=== PATIENT | female | born 1985 | race Caucasian/White ===

== ENCOUNTER 2017-12-19 17:12 | Emergency (ER) | payer OTHER, SELFPAY ==
[2017-12-19 17:18] VITALS: BP 125/84; PULSE 72; RESP 15; TEMP 36.3; O2SAT 100; BMI 22.8
--- NOTE | 2017-12-19 17:23 | DI.RAD.S_ITS ---
PROCEDURE: XR CHEST 1V INDICATIONS: chest pain TECHNIQUE: One view of the chest was acquired. COMPARISON: None. FINDINGS: Surgical changes and devices: None. Lungs and pleura: No pleural effusions or pneumothorax. Lungs are clear. Mediastinum: Mediastinal contours appear normal. Heart size is normal. Bones and chest wall: No suspicious bony lesions. Overlying soft tissues appear unremarkable. IMPRESSION: No acute cardiopulmonary disease process. Dictated by: Christine Aguirre MD, PhD on 12/19/2017 at 16:46 Approved by: Christine Aguirre MD, PhD on 12/19/2017 at 16:46
--- NOTE | 2017-12-19 17:26 | ED.CHESTPAIN ---
HPI - Chest Pain <MARY ELLEN Neville - Last Filed: 12/19/17 22:28> General Chief Complaint: Chest Pain Stated Complaint: MIDDLE CHEST PAIN X1 DAY Time Seen by Provider: 12/19/17 17:26 Source: patient Mode of arrival: ambulatory Limitations: no limitations History of Present Illness HPI narrative: 32-year-old healthy female with history of tubal ligation is a nonsmoker here for complaint of having chest pain that started around 9 o'clock this morning. She denies any trauma to the chest wall. She denies any nausea vomiting. No shortness of breath. No diaphoresis, she reports she does frequently get chest pain daily. she does feel that she might have some anxiety issues that may be adding to her issues of frequent chest pain. She does not currently have a primary care provider. she denies any other concerns or complaints at this time. No fevers no chills. Related Data Allergies Allergy/AdvReac Type Severity Reaction Status Date / Time No Known Drug Allergies Allergy Verified 12/19/17 17:18 Review of Systems <MARY ELLEN Neville - Last Filed: 12/19/17 22:28> Constitutional Denies chills, Denies fatigue, Denies fever(s), Denies lethargy and Denies weakness Eyes Denies change in vision, Denies eye discharge, Denies irritation and Denies loss of vision ENT Ears, Nose, Mouth, and Throat: Denies change in voice, Denies neck pain and Denies sore throat Cardiovascular Reports chest pain, Denies dyspnea and Denies dyspnea on exertion Respiratory Denies cough, Denies dyspnea, Denies dyspnea on exertion and Denies wheezing Gastrointestinal Gastrointestinal: Denies abdominal pain, Denies change in bowel habits, Denies diarrhea, Denies nausea and Denies vomiting Genitourinary Denies hematuria, Denies flank pain, Denies urinary incontinence and Denies urinary urgency Musculoskeletal Denies neck pain Integumentary/Breasts Denies pruritus, Denies erythema, Denies rash and Denies wounds Neurologic Denies confusion, Denies loss of vision and Denies weakness Psychiatric Denies anxiety, Denies confusion, Denies depression, Denies homicidal ideation and Denies suicidal ideation Endocrine Denies fatigue and Denies flushing Hematologic/Lymphatic Denies easy bruising Allergic/Immunologic Denies wheezing Exam <MARY ELLEN Neville - Last Filed: 12/19/17 22:28> Initial Vital Signs Initial Vital Signs: Vital Signs Temperature 97.3 F L 12/19/17 17:18 Pulse Rate 72 12/19/17 17:18 Respiratory Rate 15 12/19/17 17:18 Blood Pressure 125/84 12/19/17 17:18 Pulse Oximetry 100 12/19/17 17:18 Const General: cooperative and well developed Nutritional Appearance: well nourished Orientation: alert, awake, oriented x3 and not confused [facility] Mouth: oral mucosae normal and moist mucous membranes Eyes Conjunctivae: conjunctivae normal Sclera: sclerae normal Pupils: PERRL EOM: EOM intact bilaterally Chest Chest: tenderness ( palpitation to the left sternal border) Resp Effort & Inspection: normal respiratory effort, able to speak in complete sentences, no respiratory distress and no use of accessory muscles Auscultation: clear to auscultation bilaterally, no rales, no rhonchi and no wheezes Cardio Rate: regular rate Rhythm: regular rhythm Heart Sounds: no click, no gallops, no murmurs and no rubs Pulses: normal peripheral pulses Skin General: no rashes or lesions noted, No jaundice and No petechiae Neuro General: alert, oriented x3, gait normal and no focal motor deficits Speech: speech normal <Lindsay You DO - Last Filed: 12/27/17 18:24> Initial Vital Signs Initial Vital Signs: Vital Signs Temperature 97.3 F L 12/19/17 17:18 Pulse Rate 72 12/19/17 17:18 Respiratory Rate 15 12/19/17 17:18 Blood Pressure 125/84 12/19/17 17:18 Pulse Oximetry 100 12/19/17 17:18 Scores <MARY ELLEN Neville - Last Filed: 12/19/17 22:28> HEART Score Heart Score history: Slightly Suspicious Heart Score EKG: Normal Heart Score Age: < 45 years old Heart Score risk factors: No known risk factors Heart Score troponin: < or = to normal limit Heart Score Total: 0 PERC Score Age greater than or equal to 50 years: No Heart rate greater than or equal to 100 bpm: No Room Air O2 Sat less than 95%: No Unilateral leg swelling: No Recent trauma or surgery: No Hemoptysis: No Prior PE or DVT: No Hormone Use: No Total PERC Score: 0 Course <MARY ELLEN Neville - Last Filed: 12/19/17 22:28> Orders Ordered: ED Orders 12/19/17 17:17 EKG-12 Lead Stat 12/19/17 17:23 XR chest 1V Stat 12/19/17 17:35 Complete Blood Count AUTO DIFF Stat Comprehensive Metabolic Panel Stat Lipase Stat Partial Thromboplastin Time Stat Prothrombin Time INR Stat Troponin & CK Cardiac Panel Stat Vital Signs - 8 hr 12/19/17 17:18 12/19/17 19:25 Temperature 97.3 F L Pulse Rate 72 78 Respiratory Rate 15 20 Blood Pressure 125/84 116/78 Pulse Oximetry 100 99 <Lindsay You DO - Last Filed: 12/27/17 18:24> Orders Ordered: ED Orders 12/19/17 17:17 EKG-12 Lead Stat 12/19/17 17:23 XR chest 1V Stat 12/19/17 17:35 Complete Blood Count AUTO DIFF Stat Comprehensive Metabolic Panel Stat Lipase Stat Partial Thromboplastin Time Stat Prothrombin Time INR Stat Troponin & CK Cardiac Panel Stat Vital Signs - 8 hr 12/19/17 17:18 12/19/17 19:25 Temperature 97.3 F L Pulse Rate 72 78 Respiratory Rate 15 20 Blood Pressure 125/84 116/78 Pulse Oximetry 100 99 MDM - Chest Pain <MARY ELLEN Neville - Last Filed: 12/19/17 22:28> Lab Data Result diagrams: 12/19/17 17:35 12/19/17 17:35 Lab Results 12/19/17 12/19/17 12/19/17 Range/Units 17:35 17:35 17:35 WBC 6.3 (4.5-11.0) X10^3/uL RBC 4.61 (4.0-5.2) X10^6/uL Hgb 13.6 (12.0-16.0) g/dL Hct 40.2 (36-46) % MCV 87.4 (80-100) fL MCH 29.6 (26-34) PG MCHC 33.9 (30-36) % RDW 13.1 (11.6-14.8) % Plt Count 202 (150-400) X10^3/uL Neut % (Auto) 50.9 (50-75) % Lymph % (Auto) 37.9 (25-40) % [place] % (Auto) 9.0 (3-14) % Eos % (Auto) 1.5 L (2-4) % Baso % (Auto) 0.7 (0-2) % Neut # (Auto) 3200 (3046-6879) /uL PT 12.1 (10.1-12.7) SECONDS INR 1.1 (0.9-1.3) APTT 33 (26.4-36.2) SECONDS Sodium 142 (137-145) mmol/L Potassium 3.8 (3.4-5.1) mmol/L Chloride 104 (98-107) mmol/L Carbon Dioxide 27 (22-32) mmol/L BUN 11 (7-17) mg/dL Creatinine 0.70 (0.52-1.04) mg/dL Estimated GFR > 60.0 (>60) mL/min BUN/Creatinine Ratio 15.7 (6-22) Glucose 88 (70-100) mg/dL Calcium 9.3 (8.4-10.2) mg/dL Total Bilirubin 0.4 (0.2-1.3) mg/dL AST 29 (14-36) IU/L ALT 35 (9-52) IU/L Alkaline Phosphatase 41 (38-126) U/L Total Creatine Kinase 120 (30-135) U/L CK-MB (CK-2) 0.95 (<2.37) ng/mL CK-MB (CK-2) Rel Index 0.8 L (1.5-5.0) % Troponin I < 0.012 (0.01-0.034) ng/mL Total Protein 7.7 (6.3-8.2) g/dL Albumin 4.7 (3.5-5.0) g/dL Globulin 3.0 (1.7-4.1) g/dL Albumin/Globulin Ratio 1.6 (1.0-2.8) Lipase 38 (23-300) U/L Point of Care Testing Test Results Negative Imaging Data Chest x-ray: Radiologist's impression: [address] [address] XRay Report Signed Patient: Becka Perez LMR#: [id number] : 1985Acct:[id number] Age/Sex: 32 / FDate of Service: 12/19/17 Loc: ED Accession Number: [id number] Procedure: XR chest 1V Ordering Provider: Gucci Feng D.O. PROCEDURE: XR CHEST 1V INDICATIONS: chest pain TECHNIQUE: One view of the chest was acquired. COMPARISON: None. FINDINGS: Surgical changes and devices: None. Lungs and pleura: No pleural effusions or pneumothorax. Lungs are clear. Mediastinum: Mediastinal contours appear normal. Heart size is normal. Bones and chest wall: No suspicious bony lesions. Overlying soft tissues appear unremarkable. IMPRESSION: No acute cardiopulmonary disease process. Dictated by: Christine Aguirre MD, PhD on 12/19/2017 at 16:46 Approved by: Christine Aguirre MD, PhD on 12/19/2017 at 16:46 [place] [address] XRay Report Signed Patient: Becka Perez LMR#: [id number] : 1985Acct:[id number] Age/Sex: 32 / FDate of Service: 12/19/17 Loc: ED Accession Number: [id number] Procedure: XR chest 1V Ordering Provider: Gucci Feng D.O. PROCEDURE: XR CHEST 1V INDICATIONS: chest pain TECHNIQUE: One view of the chest was acquired. COMPARISON: None. FINDINGS: Surgical changes and devices: None. Lungs and pleura: No pleural effusions or pneumothorax. Lungs are clear. Mediastinum: Mediastinal contours appear normal. Heart size is normal. Bones and chest wall: No suspicious bony lesions. Overlying soft tissues appear unremarkable. IMPRESSION: No acute cardiopulmonary disease process. Dictated by: Christine Aguirre MD, PhD on 12/19/2017 at 16:46 Approved by: Christine Aguirre MD, PhD on 12/19/2017 at 16:46 ECG Data Interpretation: EKG shows sinus Bradycardia with no ST elevation or depression. No ectopy. ventricular rate of 53. Pr interval 174. QRS duration of 95. QT of 413 MDM Narrative Medical decision making narrative: EKG was obtained and was unremarkable. Chest x-ray was obtained was negative for any acute findings. CBC and Chem panel were obtained were unremarkable. Troponin 8 hr post started chest pain was obtained and was negative. chest pain was reproducible with palpation to the anterior chest wall. Signs and symptoms presents as costochondritis. [id number] ibuprofen as needed for any discomfort. Rest area. Follow up with primary care provider next week. For any worsening symptoms return to the emergency room. <Lindsay You, - Last Filed: 12/27/17 18:24> Lab Data Lab Results 12/19/17 12/19/17 12/19/17 Range/Units 17:35 17:35 17:35 WBC 6.3 (4.5-11.0) X10^3/uL RBC 4.61 (4.0-5.2) X10^6/uL Hgb 13.6 (12.0-16.0) g/dL Hct 40.2 (36-46) % MCV 87.4 (80-100) fL MCH 29.6 (26-34) PG MCHC 33.9 (30-36) % RDW 13.1 (11.6-14.8) % Plt Count 202 (150-400) X10^3/uL Neut % (Auto) 50.9 (50-75) % Lymph % (Auto) 37.9 (25-40) % [place] % (Auto) 9.0 (3-14) % Eos % (Auto) 1.5 L (2-4) % Baso % (Auto) 0.7 (0-2) % Neut # (Auto) 3200 (3088-2903) /uL PT 12.1 (10.1-12.7) SECONDS INR 1.1 (0.9-1.3) APTT 33 (26.4-36.2) SECONDS Sodium 142 (137-145) mmol/L Potassium 3.8 (3.4-5.1) mmol/L Chloride 104 (98-107) mmol/L Carbon Dioxide 27 (22-32) mmol/L BUN 11 (7-17) mg/dL Creatinine 0.70 (0.52-1.04) mg/dL Estimated GFR > 60.0 (>60) mL/min BUN/Creatinine Ratio 15.7 (6-22) Glucose 88 (70-100) mg/dL Calcium 9.3 (8.4-10.2) mg/dL Total Bilirubin 0.4 (0.2-1.3) mg/dL AST 29 (14-36) IU/L ALT 35 (9-52) IU/L Alkaline Phosphatase 41 (38-126) U/L Total Creatine Kinase 120 (30-135) U/L CK-MB (CK-2) 0.95 (<2.37) ng/mL CK-MB (CK-2) Rel Index 0.8 L (1.5-5.0) % Troponin I < 0.012 (0.01-0.034) ng/mL Total Protein 7.7 (6.3-8.2) g/dL Albumin 4.7 (3.5-5.0) g/dL Globulin 3.0 (1.7-4.1) g/dL Albumin/Globulin Ratio 1.6 (1.0-2.8) Lipase 38 (23-300) U/L Point of Care Testing Test Results Negative ECG Data Attestation: I personally reviewed and interpreted this ECG as follows: Prior ECG tracings: not available for review Interpretation: Normal sinus rhythm rate [address] changes here interval 174, QRS 95, QTC 389 Discharge Plan Departure Patient Disposition: Home Clinical Impression: Acute costochondritis Discharge Date/Time: 12/19/17 19:26 Interventions: ED Discharge Assessment Last Done: 12/19/17 19:25 Instructions: DI for Costochondritis Activity Restrictions/Additional Instructions: laboratory results chest x-ray and EKG today were unremarkable. Signs and symptoms presents as chest wall discomfort. use [id number] ibuprofen as needed for any discomfort. Rest area. Follow up with primary care provider next week for re-evaluation. For any worsening symptoms return to the emergency room. Referrals: Millicent Del Toro MD [Primary Care Provider] - <Lindsay You DO - Last Filed: 12/27/17 18:24> Cosign ED Attending Susan Attestation: I was immediately available in the department for consultation. Documentation has been reviewed. I agree with assessment and plan.
[2017-12-19 17:41] LABS: Add Manual Diff / Slide Review NO; Basophils Percent Auto 0.7 % (0-2); Eosinophils Percent Auto 1.5 % (2-4); Hematocrit 40.2 % (36-46); Hemoglobin 13.6 g/dL (12.0-16.0); Lymphocytes Percent Auto 37.9 % (25-40); Mean Corpuscular HGB Conc 33.9 % (30-36); Mean Corpuscular Hemoglobin 29.6 PG (26-34); Mean Corpuscular Volume 87.4 fL (80-100); Neutrophils Absolute Auto 3200 /uL (3000-5900); Neutrophils Percent Auto 50.9 % (50-75); Platelet Count 202 X10^3/uL (150-400); Red Blood Cell Count 4.61 X10^6/uL (4.0-5.2); Red Cell Distribution Width 13.1 % (11.6-14.8); White Blood Cell Count 6.3 X10^3/uL (4.5-11.0)
[2017-12-19 17:50] LABS: INR 1.1 (0.9-1.3); Prothrombin Time 12.1 SECONDS (10.1-12.7)
[2017-12-19 17:53] LABS: PTT Partial Thromboplastin Tim 33 SECONDS (26.4-36.2)
[2017-12-19 17:54] LABS: Alanine Aminotransferase 35 IU/L (9-52); Albumin 4.7 g/dL (3.5-5.0); Albumin Globulin Ratio 1.6 (1.0-2.8); Alkaline Phosphatase 41 U/L (38-126); Aspartate Aminotransferase 29 IU/L (14-36); BUN Creatinine Ratio 15.7 (6-22); Bilirubin Total 0.4 mg/dL (0.2-1.3); Blood Urea Nitrogen 11 mg/dL (7-17); Calcium 9.3 mg/dL (8.4-10.2); Carbon Dioxide 27 mmol/L (22-32); Chloride 104 mmol/L (98-107); Creatine Kinase 120 U/L (30-135); Estimated Glomerular Filt Rate > 60.0 mL/min (>60); Glucose 88 mg/dL (70-100); HEMOLYSIS < 15 (0-50); Lipase 38 U/L (23-300); Potassium 3.8 mmol/L (3.4-5.1); Sodium 142 mmol/L (137-145); Total Protein 7.7 g/dL (6.3-8.2)
[2017-12-19 18:07] LABS: Troponin I < 0.012 ng/mL (0.01-0.034)
[2017-12-19 18:09] LABS: CKMB % Relative Index 0.8 % (1.5-5.0); Creatine Kinase MB 0.95 ng/mL (<2.37)
[2017-12-19 19:25] VITALS: BP 116/78; PULSE 78; RESP 20; O2SAT 99
== END 2017-12-19 19:26 | disposition home or self-care (01) ==
PROVIDERS: Emergency Medicine; Emergency Provider Nurse Practitioner Family; Family Provider Obstetrics & Gynecology; PCP Obstetrics & Gynecology
DX: M94.0 Chondrocostal junction syndrome [Tietze] (principal)
CPT/HCPCS: 36415; 71045; 80053; 81025; 82550; 82553; 83690; 84484; 85025; 85610; 85730; 93005; 99282; 99285

== ENCOUNTER 2018-07-05 22:08 | Emergency (ER) | payer OTHER, SELFPAY ==
[2018-07-05 22:19] VITALS: BP 118/85; PULSE 69; RESP 14; TEMP 36.7; O2SAT 98; BMI 22.8
--- NOTE | 2018-07-05 22:31 | ED.EAR ---
HPI - Ear Problem General Chief complaint: Ear Stated complaint: ear pain x3 days Time Seen by Provider: 07/05/18 22:30 Source: patient Mode of arrival: ambulatory Limitations: no limitations History of Present Illness HPI Narrative: Patient is a 33-year-old female here for evaluation of left ear pain. She states it has been going on for the past couple days. Has had some drainage from the ear. No change in her hearing. 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 She states that the tympanic membrane in that ear has been ?reconstructed ?she has been doing home homeopathic remedies with olive oil and Lavender. Related Data Previous Rx's Medication Instructions Recorded ciprofloxacin-dexamethasone 4 drop EAR-LEFT BID 7 Days #7.5 ml 07/05/18 [Ciprodex] Allergies Allergy/AdvReac Type Severity Reaction Status Date / Time No Known Drug Allergies Allergy Verified 07/05/18 22:19 Review of Systems Constitutional Denies fever(s) and Reports headache(s) ENT Ears, Nose, Mouth, and Throat: Denies vertigo, Denies dizziness, Denies facial pain, Reports headache(s), Denies hearing loss, Denies disequilibrium, Denies sore throat, Denies throat swelling and Denies tongue swelling Comments: Left ear pain Cardiovascular Denies chest pain and Denies dyspnea Respiratory Denies dyspnea Integumentary/Breasts Denies rash Neurologic Denies vertigo, Denies dizziness, Reports headache(s) and Denies disequilibrium Hematologic/Lymphatic Denies easy bleeding and Denies easy bruising Allergic/Immunologic Denies throat swelling and Denies tongue swelling [facility] Medical History Ruptured tympanic membrane (Resolved) Surgical History (Updated 01/05/18 @ 22:03 by Gardenia Esteban) Status post loop electrosurgical excision procedure (LEEP) of cervix (~2009) Status post myringotomy with insertion of tube Status post tubal ligation (12/26/13) Social History Smoking Status: Never smoker Social History Smoking Status: Never smoker Exam Initial Vital Signs Initial Vital Signs: Vital Signs Temperature 98.1 F 07/05/18 22:19 Pulse Rate 69 07/05/18 22:19 Respiratory Rate 14 07/05/18 22:19 Blood Pressure 118/85 07/05/18 22:19 Pulse Oximetry 98 07/05/18 22:19 Const General: cooperative, healthy appearing, comfortable, well developed, well groomed and No acute distress Orientation: alert and oriented x3 HENMT Head: normal to inspection and normocephalic Ears: TM's normal bilaterally and EAC abnormal cerumen impaction on the right, erythema on the left, edema not on the left and EAC tenderness on the left; no otic discharge Nose: external nose normal Face and sinus: normal facial exam Mouth: oral mucosae normal Teeth and gingiva: dentition normal Neck Lymphatic: No lymphadenopathy Resp Effort & Inspection: normal respiratory effort Auscultation: clear to auscultation bilaterally Cardio Rate: regular rate Rhythm: regular rhythm Skin Lesions: no lesions Rashes: no rashes Neuro General: alert, awake and oriented x3 Cognition: normal cognition Speech: speech normal Extrem General: normal to inspection and capillary refill normal Course Vital Signs - 8 hr 07/05/18 22:19 Temperature 98.1 F Pulse Rate 69 Respiratory Rate 14 Blood Pressure 118/85 Pulse Oximetry 98 Medical Decision Making MDM Narrative Medical decision making narrative: The right tympanic membrane is completely obscured by cerumen. It is too far posterior for me to remove here in the emergency department. The left tympanic membrane despite it being reconstructed as a child looks normal. Is not erythematous. It is not bulging. Patient is exquisitely tender with the left EAC. She is also having tenderness with movement of the auricle. There is minimal swelling. Will place on Ciprodex. Patient is given a prescription for this. I did inform her that the homeopathic remedies she is using at home could be causing irritation. She is given return precautions and follow-up instructions. She expressed understanding and agreement plan Discharge Plan Departure Patient Disposition: Home Clinical Impression: Otitis externa Qualifiers: Otitis externa type: unspecified type Chronicity: acute Laterality: left Qualified Code(s): H60.502 - Unspecified acute noninfective otitis externa, left ear Discharge Date/Time: 07/05/18 22:38 Interventions: ED Discharge Assessment Last Done: 07/05/18 22:36 Instructions: How to Instill Ear Drops, DI for Otitis Externa Activity Restrictions/Additional Instructions: Take the antibiotic drops as directed. You can take Tylenol or ibuprofen as needed for any discomfort. Keep your scheduled appointment that she had with your primary doctor in the next couple days. Return to the emergency department for any new or worsening symptoms Prescriptions: New Ciprodex 0.3-0.1 % drops,suspension 4 drop EAR-LEFT BID 7 Days Qty: 7.5 RF: 0 Referrals: Millicent Del Toro MD [Primary Care Provider] -
== END 2018-07-05 22:38 | disposition home or self-care (01) ==
PROVIDERS: Emergency Provider Emergency Medicine; Family Provider Obstetrics & Gynecology; PCP Obstetrics & Gynecology
DX: H60.502 Unspecified acute noninfective otitis externa, left ear (principal)
CPT/HCPCS: 99282; 99283

== ENCOUNTER 2019-01-30 11:59 | Emergency (ER) | payer OTHER, SELFPAY ==
[2019-01-30 12:34] VITALS: BP 103/76; PULSE 67; RESP 18; O2SAT 99; BMI 24.3
[2019-01-30 13:11] VITALS: TEMP 36.8
--- NOTE | 2019-01-30 14:26 | ED_ITS ---
HPI - Female Genitourinary General Chief complaint: Urogenital-Female Stated complaint: heavy menses x1 day Time Seen by Provider: 01/30/19 14:10 Source: patient Mode of arrival: Ambulatory Limitations: no limitations History of Present Illness HPI Narrative: Patient is a 33-year-old female who presents with heavy menstrual pain. She states her last menstrual period was December 13. She had some very light spotting in December she actually took a test which was negative. Today she had 2 large episodes of blood along with some cramping. No dizziness lightheadedness or shortness of breath. She called OBGYN who recommended she come to the ED for further evaluation. Related Data Allergies Allergy/AdvReac Type Severity Reaction Status Date / Time No Known Drug Allergies Allergy Verified 07/05/18 22:19 Review of Systems Review of Systems Narrative: GENERAL: Denies chills,fever HEENT: Denies throat pain RESPIRATORY: Denies dyspnea, cough, wheezing CARDIOVASCULAR: Denies chest pain, palpitations [employer]: See HPI GASTROINTESTINAL: Denies nausea, vomiting MUSCULOSKELETAL: Denies extremity pain, injury SKIN: No rash, no laceration, no pruritus NEUROLOGIC: Denies weakness, dizziness, headache, numbness 8 point review of systems is negative except for those stated above and HPI Patient History Medical History Ruptured tympanic membrane (Resolved) Surgical History Status post loop electrosurgical excision procedure (LEEP) of cervix (~2009) Status post myringotomy with insertion of tube Status post tubal ligation (12/26/13) alcohol intake frequency: holidays/special occasions only Substance Use Type: does not use Exam Initial Vital Signs Initial Vital Signs: Vital Signs Pulse Rate 67 01/30/19 12:34 Respiratory Rate 18 01/30/19 12:34 Blood Pressure 103/76 01/30/19 12:34 Pulse Oximetry 99 01/30/19 12:34 GENERAL: Well-appearing, well-nourished and in no acute distress. HEENT: Head atraumatic,EOMI, pupils reactive, face symmetric, moist mucous membranes CARDIOVASCULAR: Regular rate and rhythm without murmurs, rubs or gallops. RESPIRATORY: Breath sounds equal bilaterally, no wheezes rales or rhonchi. ABDOMEN: Soft, nontender. Normoactive bowel sounds all 4 quadrants. No guarding or rebound. EXTREMITIES: Normal range of motion, no clubbing or edema. Neurovascularly intact NEUROLOGICAL: Alert and oriented x4.Normal gait and speech. SKIN: Warm, dry, no laceration, no petechiae, no rashes or lesions. Course Orders Ordered: ED Orders 01/30/19 15:21 Urine Microscopic Stat Vital Signs Vital signs: Vital Signs - 8 hr 01/30/19 12:34 01/30/19 13:11 01/30/19 15:26 Temperature 98.3 F Pulse Rate 67 78 Respiratory Rate 18 16 Blood Pressure 103/76 Blood Pressure [Right Arm] 107/73 Pulse Oximetry 99 100 MDM - Female Genitourinary Lab Data Attestation: I reviewed the patient's lab results. Labs: Lab Results 01/30/19 Range/Units 15:21 Urine RBC 10-30/hpf H (0-5/HPF) Urine WBC None seen (0-5/HPF) Urine Bacteria None seen (None) Urine Mucus 1+ H (Negative) Ur Culture Indicated? Cult not indicated Point of Care Testing Test Results Negative Urine Dip Bedside Urine Glucose Negative Bedside Urine Bilirubin - Negative Bedside Urine Ketone - Negative Urine Specific Picher 1.015 Bedside Urine Occult Blood +++ Bedside Urine pH 6.5 Bedside Urine Protein - Negative Bedside Urine Urobilinogen - Negative Bedside Urine Nitrite - Negative Bedside Urine Leukocytes - Negative Esterase [facility] Narrative Medical decision making narrative: At this time likely dysfunctional uterine bleeding negative test. The bleeding has slowed down significantly while in the emergency department. Abdomen is soft minimally tender At this time she does not need or want anything for pain. She seems comfortable. Discharge Plan Departure Patient Disposition: Home Clinical Impression: Dysfunctional uterine bleeding Discharge Date/Time: 01/30/19 15:36 Instructions: DI for Vaginal Bleeding Activity Restrictions/Additional Instructions: *You have been diagnosed with vaginal bleeding *What to do: This is likely your body really regulating itself. Expect to have some heavy bleeding today and tomorrow but should start tapering off. *Continue to take medications as directed Ibuprofen 800 mg every 8 hours if needed for [id number]-[id number]-qdwhxsby pain *Follow up with your primary care provider in 2-3 days *Return to ER if you should have heavy vaginal bleeding more than 1 super pad or tampon an hour, increased abdominal pain, dizziness, lightheadedness, passing out or any new, worsening or concerning symptoms Referrals: Millicent Del Toro MD [Primary Care Provider] -
[2019-01-30 15:24] LABS: Bacteria Urine None Seen; WBC Urine None Seen (0-5/HPF)
[2019-01-30 15:26] VITALS: BP 107/73; PULSE 78; RESP 16; O2SAT 100
[2019-01-30 15:38] LABS: Culture Indicated Urine Cult Not Indicated; Mucus Urine 1+ (Negative); RBC Urine 10-30/HPF (0-5/HPF)
== END 2019-01-30 15:36 | disposition home or self-care (01) ==
PROVIDERS: Emergency Provider Emergency Medicine; Family Provider Obstetrics & Gynecology; PCP Obstetrics & Gynecology
DX: N93.8 Other specified abnormal uterine and vaginal bleeding (principal)
CPT/HCPCS: 81003; 81015; 81025; 99282

== ENCOUNTER 2019-05-24 05:14 | Emergency (ER) | payer OTHER, SELFPAY ==
--- NOTE | 2019-05-24 05:16 | ED.EAR ---
HPI - Ear Problem General Chief complaint: Ear Stated complaint: ruptured left ear drum Time Seen by Provider: 05/24/19 05:16 Source: patient Mode of arrival: Ambulatory Limitations: no limitations History of Present Illness HPI Narrative: 34-year-old female nonsmoker with noncontributory medical history presents with a chief complaint of severe right-sided ear pain. Two days ago she was irrigating her right ear with an [id number] solution when she felt a sudden pop and severe pain with drainage of clear fluid and blood. Since then she has had difficulty hearing from the ear and has developed significant pain and swelling of her ear canal with the drainage of yellowish fluid. She has some pain of the surrounding skin anterior to her ear and around her cheek. She has no pain over her mastoid process. She has had no systemic findings such as fever, chills nor nausea or vomiting. MD Complaint: ear pain, ear discharge and decreased hearing Location: right ear Duration: constant Severity: severe Exacerbating factors: nothing Context: trauma Discharge from ear: yes - bloody and yes - purulent Associated symptoms ear: decreased hearing, headache, external ear tenderness and ear swelling Treatment prior to arrival: attempt at ear wax removal Related Data Previous Rx's Medication Instructions Recorded ciprofloxacin HCl [Cipro] 500 mg PO BID #20 tab 05/24/19 Allergies Allergy/AdvReac Type Severity Reaction Status Date / Time No Known Drug Allergies Allergy Verified 05/24/19 05:41 Review of Systems Constitutional Constitutional: Denies chills, Denies fatigue, Denies fever(s), Denies frequent falls, Denies lethargy and Denies weakness Eyes Eyes: Denies change in vision, Denies eye discharge, Denies irritation and Denies loss of vision ENT Ears, Nose, Mouth, and Throat: Denies change in voice, Denies dizziness, Reports ear discharge, Reports otalgia, Denies neck pain, Denies sore throat and Denies throat swelling Cardiovascular Cardiovascular: Denies chest pain, Denies irregular heart rhythm, Denies lightheadedness, Denies palpitations, Denies dyspnea, Denies dyspnea on exertion and Denies orthopnea Respiratory Respiratory: Denies cough, Denies dyspnea, Denies dyspnea on exertion and Denies wheezing Gastrointestinal Gastrointestinal: Denies abdominal pain, Denies change in bowel habits, Denies diarrhea, Denies nausea and Denies vomiting Genitourinary Genitourinary: Denies hematuria, Denies flank pain, Denies urinary incontinence and Denies urinary urgency Musculoskeletal Musculoskeletal: Denies back pain, Denies muscle weakness, Denies neck pain, Denies numbness and Denies tingling Integumentary/Breasts Skin/Breast: Denies pruritus, Denies erythema, Denies rash and Denies wounds Neurologic Neurologic: Denies behavioral changes, Denies confusion, Denies dizziness, Denies frequent falls, Denies loss of vision, Denies numbness, Denies tingling and Denies weakness Psychiatric Psychiatric: Denies anxiety, Denies behavioral changes, Denies confusion, Denies depression, Denies homicidal ideation and Denies suicidal ideation Endocrine Endocrine: Denies fatigue, Denies flushing and Denies palpitations Hematologic/Lymphatic Hematologic/Lymphatic: Denies easy bruising Allergic/Immunologic Allergic/Immunologic: Denies urticaria, Denies throat swelling and Denies wheezing Patient History Medical History Ruptured tympanic membrane (Resolved) Surgical History Status post loop electrosurgical excision procedure (LEEP) of cervix (~2009) Status post myringotomy with insertion of tube Status post tubal ligation (12/26/13) Social History Smoking Status: Never smoker Smoking Status: Never smoker alcohol intake frequency: holidays/special occasions only Substance Use Type: does not use Exam Narrative Exam Narrative: GEN: AOx3 and in obvious distress, obviously uncomfortable, holding her R ear EYES: Pupils are equal, round, and reactive to light and accommodation. Extraoccular muscles are intact bilaterally. There is no subconjunctival hemorrhage or exudate. ENT: Unable to visualize R TM due too debris and drainage in R EAC. Tender to palpation/manipulation with swelling and erythema of canal. Mild surrounding facial cellulitis, no tenderness of mastoid CHEST: Lungs are clear to auscultation bilaterally and free of wheezes, rales, or rhonchi. Heart rate is regular rhythm, there are no murmurs, clicks, rubs, or gallops. There is no chest wall tenderness. ABD: Abdomen is soft and nontender. There is no guarding or rebound. Bowel sounds are normal in all 4 quadrants. There is no mass or organomegaly. EXT: Full painless ROM of all extremities with no loss of sensation or strength. SKIN: Warm, pink, and dry. No erythema or rash Initial Vital Signs Initial Vital Signs: Vital Signs Temperature 97.2 F L 05/24/19 05:21 Pulse Rate 89 05/24/19 05:21 Respiratory Rate 15 05/24/19 05:21 Blood Pressure 141/88 H 05/24/19 05:21 Pulse Oximetry 97 05/24/19 05:21 Course Orders Ordered: Discontinued Medications Levofloxacin (Levaquin) 500 mg PO NOW ONE Stop: 05/24/19 05:32 Last Admin: 05/24/19 05:41 Dose: 500 mg Documented by: Ofloxacin (Floxin 0.3% Otic) 5 drops EAR-RIGHT NOW ONE Stop: 05/24/19 05:32 Consultations Consultation #1: call to ENT, Dr. Nobles whom recommends quinolone drops and oral and follow up in his office on Saturday or Saturday Vital Signs Vital signs: Vital Signs - 8 hr 05/24/19 05:21 Temperature 97.2 F L Pulse Rate 89 Respiratory Rate 15 Blood Pressure 141/88 H Pulse Oximetry 97 Discharge Plan Departure Patient Disposition: Home Clinical Impression: Cellulitis of face External otitis of right ear Qualifiers: Otitis externa type: diffuse Chronicity: acute Qualified Code(s): H60.311 - Diffuse otitis externa, right ear Tympanic membrane rupture Qualifiers: Laterality: right Qualified Code(s): H72.91 - Unspecified perforation of tympanic membrane, right ear Instructions: How to Instill Ear Drops, Ruptured Eardrum, DI for Otitis Externa Activity Restrictions/Additional Instructions: *You have been diagnosed with [ acute otitis externa with, facial cellulitis, and likely tympanic membrane rupture ] *What to do: *Take medications as directed: Ciprofloxacin oral prescription electronically sent to [facility] in [place] *Follow up with [facility] (Dr. Nobles), on Saturday or Saturday Let them know you were seen in the Emergency Department, we spoke with Dr. Nobles and he wants to see you in the office *Return to ER if you should have any new, worsening or concerning symptoms Prescriptions: New ciprofloxacin HCl [Cipro] 500 mg tablet 500 mg PO BID Qty: 20 RF: 0 Referrals: Calvin Nobles MD [Physician] - Millicent Del Toro MD [Family Provider] -
[2019-05-24 05:21] VITALS: BP 141/88; PULSE 89; RESP 15; TEMP 36.2; O2SAT 97
[2019-05-24] MEDS: levoFLOXacin 250 MG TABLET 500 MG PO (05:41)
[2019-05-24] MEDS: OFLOXACIN 0.3% OPHTH 5 ML 1 DROPS EYE-RIGHT (05:46)
== END 2019-05-24 06:00 | disposition home or self-care (01) ==
PROVIDERS: Emergency Provider Emergency Medicine; Family Provider Obstetrics & Gynecology
DX: L03.211 Cellulitis of face (principal); H60.311 Diffuse otitis externa, right ear; H72.91 Unspecified perforation of tympanic membrane, right ear
CPT/HCPCS: 99283

== ENCOUNTER 2020-08-22 21:46 | Emergency (ER) | payer OTHER, SELFPAY ==
--- NOTE | 2020-08-22 21:53 | DI.RAD.S_ITS ---
PROCEDURE: XR TOE LT MIN 2V INDICATIONS: toe pain and swelling after injury TECHNIQUE: 3 views of the 1st toe(s) acquired. COMPARISON: None. FINDINGS: Bones: There is a minimally displaced fracture at the base of the distal 1st phalanx extending into the articular surface. Soft tissues: No suspicious soft tissue densities. 1st digit soft tissue edema is present. IMPRESSION: Minimally displaced intra-articular distal 1st phalanx fracture. The above findings are concordant with preliminary report. Dictated by: Mercedes Cha M.D. on 08/23/2020 at 9:38 Approved by: Mercedes Cha M.D. on 08/23/2020 at 9:39
--- NOTE | 2020-08-22 21:53 | ED.LOWEXIN ---
HPI - Extremity Injury (Lower) General Chief Complaint: Extremity Injury, Lower Stated Complaint: possible broken toe Time Seen by Provider: 08/22/20 21:50 History of Present Illness HPI Narrative: 35-year-old female nonsmoker with noncontributory medical history presents with chief complaint of an injury to the great toe on her left foot. She states that she was running after a friend's kid when she accidentally kicked them and her toe bent back, she felt a snap and now has pain, swelling and bruising. She denies any numbness, tingling or weakness. She states the pain is worse with ambulation and improves with rest. She denies any ankle, knee or hip pain. She is otherwise well and free of complaint Related Data Allergies Allergy/AdvReac Type Severity Reaction Status Date / Time No Known Drug Allergies Allergy Verified 03/09/20 18:25 Review of Systems Review of Systems Narrative: GENERAL: Denies chills, fatigue, malaise, fever, sweats. HEENT: Denies sinus pain, ear pain, sore throat, difficulty swallowing, dizziness. RESPIRATORY: Denies dyspnea, cough, wheezing, hemoptysis, sputum. CARDIOVASCULAR: Denies chest pain, palpitations, orthopnea, edema, GASTROINTESTINAL: Denies nausea, vomiting, abdominal pain, diarrhea, constipation, melena. : Denies dysuria, frequency, incontinence, hematuria, urinary retention. MUSCULOSKELETAL: See HPI SKIN: Denies rash, skin lesions, or other NEUROLOGIC: Denies weakness, headache, numbness, change in speech, confusion, seizures, incoordination. PSYCHIATRIC: No concerning psychosocial issues. 12 point review of systems is negative except for those stated above Patient History Medical History Anxiety (2016) Family history of thyroid disorder Panic attack (2016) Pelvic cramping Ruptured tympanic membrane Stress incontinence Surgical History Status post loop electrosurgical excision procedure (LEEP) of cervix (~2009) Status post myringotomy with insertion of tube Status post tubal ligation (12/26/13) Social History Smoking Status: Never smoker Smoking Status: Never smoker alcohol intake frequency: holidays/special occasions only Substance Use Type: does not use Exam Narrative Exam Narrative: GEN: AOx3 and in mild distress EYES: Pupils are equal, round, and reactive to light and accommodation. Extraoccular muscles are intact bilaterally. There is no subconjunctival hemorrhage or exudate. CHEST: Lungs are clear to auscultation bilaterally and free of wheezes, rales, or rhonchi. Heart rate is regular rhythm, there are no murmurs, clicks, rubs, or gallops. There is no chest wall tenderness. ABD: Abdomen is soft and nontender. There is no guarding or rebound. Bowel sounds are normal in all 4 quadrants. There is no mass or organomegaly. EXT: Decreased range of motion of left great toe secondary to pain. There is swelling and ecchymosis but the injury is closed, isolated and neurovascularly intact. SKIN: Warm, pink, and dry. No erythema or rash Initial Vital Signs Initial Vital Signs: Vital Signs Temperature 98.4 F 08/22/20 21:54 Pulse Rate 64 08/22/20 21:54 Respiratory Rate 16 08/22/20 21:54 Blood Pressure 148/82 H 08/22/20 21:54 Pulse Oximetry 97 08/22/20 21:54 Procedures Orthopedic Splinting/Casting Injury #1: Side: left Lower Extremity Injury Location: toe Lower Extremity Immobilizer: post-op shoe Post splinting neuro exam: intact Post splinting vascular exam: intact Placed by: Nursing Course Orders Ordered: ED Orders 08/22/20 21:53 XR toe LT min 2V Stat MDM - Extremity Injury (Lower) Imaging Data Extremity x-ray #1: My Impression: Intra-articular fracture of distal phalanx of left great toe Radiologist's Impression: Same Discharge Plan Departure Patient Disposition: Home Clinical Impression: Closed fracture of great toe Qualifiers: Encounter type: initial encounter Phalanx: distal Fracture alignment: nondisplaced Laterality: left Qualified Code(s): S92.425A - Nondisplaced fracture of distal phalanx of left great toe, initial encounter for closed fracture Instructions: DI for Toe Fracture Activity Restrictions/Additional Instructions: *You have been diagnosed with [left great toe fracture] *What to do: *Please continue to take your regular medications as directed. [ ] New medication prescriptions sent to your pharmacy: [ ] [ ] New medication written as a paper prescription [ ] No new medications given *Please follow up with [facility] in 2-3 days, call for an appointment. Let them know you were seen in the Emergency Department and that we ask that you be seen in follow up. We will electronically transmit a record of today's note if your PCP is in our system *If you do not have a primary care provider please contact the [facility] Resource line at [phone]. They will ask some questions about your medical history and help get you set up with a doctor in the community. *Return to Emergency Department if you should have any new, worsening or concerning symptoms, such as [fever greater than 101 F, shaking chills, worsening pain, persistent vomiting or other bothersome symptoms] Referrals: Vannessa Atkinson MD [Physician] - Miscellaneous,MD Alejandro [Primary Care Provider] -
[2020-08-22 21:54] VITALS: BP 148/82; PULSE 64; RESP 16; TEMP 36.9; O2SAT 97; BMI 26.2
== END 2020-08-22 22:41 | disposition home or self-care (01) ==
PROVIDERS: Emergency Provider Emergency Medicine; Family Provider Obstetrics & Gynecology
DX: S92.425A Nondisplaced fracture of distal phalanx of left great toe, initial encounter for closed fracture (principal); W22.8XXA Striking against or struck by other objects, initial encounter
CPT/HCPCS: 73660; 99281; 99283

== ENCOUNTER 2020-09-21 19:07 | Emergency (ER) | payer OTHER, SELFPAY ==
[2020-09-21 19:11] VITALS: BP 119/87; PULSE 81; RESP 16; TEMP 36.6; O2SAT 99
--- NOTE | 2020-09-21 19:54 | ED_ITS ---
HPI - Ear Problem <Marbin Mason PA-C - Last Filed: 09/22/20 18:45> General Chief complaint: Ear Stated complaint: ear inferction. rt side Time Seen by Provider: 09/21/20 19:54 Source: patient Mode of arrival: Ambulatory History of Present Illness HPI Narrative: Becka presents today with chief complaint outer ear pain and swelling that originally started about 1 month ago. She reports that she has been treating this with ear drops and alcohol swabs. She has long history ear infections and was trying to avoid antibiotics. However, her symptoms are seeming to get worse. She denies any fever, headache, vision changes, difficulty swallowing, sore throat, ear discharge or any other acute concerns or complaints at this time. Related Data Previous Rx's Medication Instructions Recorded ofloxacin 0.3 % ear drops 10 drp EAR-RIGHT DAILY 7 Days #10 09/21/20 ml ciprofloxacin HCl 500 mg tablet 500 mg PO BID 7 Days #14 tab 09/23/20 ofloxacin 0.3 % ear drops 10 drp OTIC (EAR) DAILY 7 Days #10 09/23/20 ml Allergies Allergy/AdvReac Type Severity Reaction Status Date / Time No Known Drug Allergies Allergy Verified 09/23/20 16:13 Review of Systems <Marbin Mason PA-C - Last Filed: 09/22/20 18:45> Review of Systems Narrative: As per HPI Patient History <Marbin Mason PA-C - Last Filed: 09/22/20 18:45> Medical History Anxiety (2015) Family history of thyroid disorder Panic attack (2016) Pelvic cramping Ruptured tympanic membrane Stress incontinence Surgical History Status post loop electrosurgical excision procedure (LEEP) of cervix (~2009) Status post myringotomy with insertion of tube Status post tubal ligation (12/26/13) Social History Smoking Status: Never smoker Smoking Status: Never smoker alcohol intake frequency: holidays/special occasions only Substance Use Type: does not use Exam <Marbin Mason PA-C - Last Filed: 09/22/20 18:45> Narrative Exam Narrative: Const General: cooperative, healthy appearing, comfortable and no acute distress Nutritional Appearance: average body habitus and well nourished Orientation: alert and oriented x3 [facility] Head: normal to inspection and normocephalic Ears: hearing grossly normal bilaterally, external ears normal, TM's normal bilaterally, EAC normal on the left, EAC erythematous and edematous on the right. It is still patent and TM is visualized., mastoids normal and no periauricular adenopathy Nose: external nose normal, nares normal and no nasal discharge Face and sinus: normal facial exam, sinuses nontender and face symmetric Mouth: oral mucosae normal, lip normal, tongue normal and moist mucous membranes Teeth and gingiva: dentition normal and gingiva normal Throat: posterior oropharynx normal, uvula midline, no postnasal drainage and no uvular edema Eyes periorbital findings normal, eyelids normal, conjunctivae normal Neck: normal visual inspection, full ROM, no lymphadenopathy, no meningeal signs and supple Resp normal respiratory effort, able to speak in complete sentences, not labored and no respiratory distress Neuro Alert and Oriented x3, normal gait, moves all extremities. Initial Vital Signs Initial Vital Signs: Vital Signs Temperature 97.9 F 09/21/20 19:11 Pulse Rate 81 09/21/20 19:11 Respiratory Rate 16 09/21/20 19:11 Blood Pressure 119/87 09/21/20 19:11 Pulse Oximetry 99 09/21/20 19:11 <Tessa Morocho DO - Last Filed: 09/25/20 04:43> Initial Vital Signs Initial Vital Signs: Vital Signs Temperature 97.9 F 09/21/20 19:11 Pulse Rate 81 09/21/20 19:11 Respiratory Rate 16 09/21/20 19:11 Blood Pressure 119/87 09/21/20 19:11 Pulse Oximetry 99 09/21/20 19:11 Course <Marbin Mason PA-C - Last Filed: 09/22/20 18:45> Vital Signs Vital signs: Vital Signs - 8 hr 09/21/20 19:11 Temperature 97.9 F Pulse Rate 81 Respiratory Rate 16 Blood Pressure 119/87 Pulse Oximetry 99 <Tessa Morocho DO - Last Filed: 09/25/20 04:43> Vital Signs Vital signs: Vital Signs - 8 hr 09/21/20 19:11 Temperature 97.9 F Pulse Rate 81 Respiratory Rate 16 Blood Pressure 119/87 Pulse Oximetry 99 Discharge Plan Departure Patient Disposition: Home Clinical Impression: External otitis of right ear Qualifiers: Otitis externa type: unspecified type Chronicity: acute Qualified Code(s): H60.501 - Unspecified acute noninfective otitis externa, right ear Activity Restrictions/Additional Instructions: It was nice to meet you this evening. Please use the antibiotic drops as recommended. If you experience fever, headache, worsening swelling, or any other acute concerns or complaints do not hesitate to return for re-evaluation. Thank you Marbin Mason PAC Prescriptions: New ofloxacin 0.3 % drops 10 drp EAR-RIGHT DAILY 7 Days Qty: 10 RF: 0 No Action ofloxacin 0.3 % drops 10 drp otic (ear) DAILY 7 Days Qty: 10 RF: 1 ciprofloxacin HCl 500 mg tablet 500 mg PO BID 7 Days Qty: 14 RF: 0 <Tessa Morocho DO - Last Filed: 09/25/20 04:43> Cosign ED Attending Cosignature Attestation: I was immediately available in the department for consultation. Documentation has been reviewed.
== END 2020-09-21 20:10 | disposition home or self-care (01) ==
PROVIDERS: Emergency Provider Physician Assistant; Family Provider Obstetrics & Gynecology
DX: H60.501 Unspecified acute noninfective otitis externa, right ear (principal)
CPT/HCPCS: 99281

== ENCOUNTER → 2020-12-12 11:32 | Outpatient (CLI) | payer OTHER, SELFPAY ==
--- NOTE | 2020-12-12 11:38 | DI.RAD.S_ITS ---
PROCEDURE: XR HAND RT MIN 3V INDICATIONS: LUPAS EVAL TECHNIQUE: 3 views of the hand(s) acquired. COMPARISON: None. FINDINGS: Bones: No fractures or dislocations. Carpal bones are normally aligned. No suspicious bony lesions. Soft tissues: No suspicious soft tissue calcifications. IMPRESSION: Unremarkable right hand radiographs Approved by: Jordi Madison M.D. on 12/12/2020 at 15:38
--- NOTE | 2020-12-12 11:38 | DI.RAD.S_ITS ---
PROCEDURE: XR HAND LT MIN 3V INDICATIONS: LUPAS EVAL TECHNIQUE: 3 views of the hand(s) acquired. COMPARISON: None. FINDINGS: Bones: No fractures or dislocations. Carpal bones are normally aligned. No suspicious bony lesions. Soft tissues: No suspicious soft tissue calcifications. IMPRESSION: Unremarkable left hand radiographs Approved by: Jordi Madison M.D. on 12/12/2020 at 15:46
[2020-12-12 13:04] LABS: Add Manual Diff / Slide Review NO; Basophils Absolute Auto 0 /uL (0-100); Basophils Percent Auto 0.7 % (0-2); Eosinophils Absolute Auto 200 /uL (0-450); Eosinophils Percent Auto 2.9 % (2-4); Hematocrit 39.6 % (36-46); Hemoglobin 13.2 g/dL (12.0-16.0); Lymphocytes Absolute Auto 1700 /uL (1100-4500); Lymphocytes Percent Auto 32.2 % (25-40); Mean Corpuscular HGB Conc 33.4 % (30-36); Mean Corpuscular Hemoglobin 29.3 PG (26-34); Mean Corpuscular Volume 87.5 fL (80-100); Monocytes Absolute Auto 500 /uL (0-900); Monocytes Percent Auto 9.4 % (3-14); Neutrophils Absolute Auto 3000 /uL (1500-7000); Neutrophils Percent Auto 54.8 % (50-75); Platelet Count 197 X10^3/uL (150-400); Red Blood Cell Count 4.53 X10^6/uL (4.0-5.2); Red Cell Distribution Width 13.7 % (11.6-14.8); White Blood Cell Count 5.4 X10^3/uL (4.5-11.0)
[2020-12-12 13:26] LABS: HEMOLYSIS < 15 (0-50)
[2020-12-12 13:31] LABS: Alanine Aminotransferase 19 IU/L (<35); Albumin 4.4 g/dL (3.5-5.0); Albumin Globulin Ratio 1.6 (1.0-2.8); Alkaline Phosphatase 40 U/L (38-126); Aspartate Aminotransferase 22 IU/L (14-36); BUN Creatinine Ratio 11.1 (6-22); Bilirubin Total 0.5 mg/dL (0.2-1.3); Blood Urea Nitrogen 9 mg/dL (7-17); Calcium 9.7 mg/dL (8.4-10.2); Carbon Dioxide 26 mmol/L (22-32); Chloride 104 mmol/L (98-107); Estimated Glomerular Filt Rate > 60.0 mL/min (>60); Globulin 2.8 g/dL (1.7-4.1); Glucose 66 mg/dL (70-100); Potassium 4.4 mmol/L (3.4-5.1); Sodium 139 mmol/L (137-145); Total Protein 7.2 g/dL (6.3-8.2)
[2020-12-12 14:16] LABS: Erythrocyte Sedimentation Rate 4 MM/HR (0-20)
[2020-12-14 17:17] LABS: ANA Screen, IFA Negative (.)
[2020-12-15 05:58] LABS: Rheumatoid Factor < 8.6 IU/mL (<12.0)
== END ==
PROVIDERS: Family Provider Obstetrics & Gynecology; Referring Provider Family Medicine; Visit Provider Family Medicine
DX: M32.9 Systemic lupus erythematosus, unspecified (principal)
CPT/HCPCS: 36415; 73130; 80053; 85025; 85651; 86038; 86430

== ENCOUNTER 2021-07-14 18:37 | Emergency (ER) | payer OTHER, SELFPAY ==
[2021-07-14 18:54] VITALS: BP 165/93; PULSE 66; RESP 14; TEMP 36.8; O2SAT 98; BMI 25.0
[2021-07-14 20:57] LABS: Add Manual Diff / Slide Review NO; Basophils Absolute Auto 0 /uL (0-100); Basophils Percent Auto 0.6 % (0-2); Eosinophils Absolute Auto 200 /uL (0-450); Eosinophils Percent Auto 3.2 % (2-4); Hematocrit 38.8 % (36-46); Hemoglobin 13.4 g/dL (12.0-16.0); Lymphocytes Absolute Auto 2600 /uL (1100-4500); Lymphocytes Percent Auto 40.3 % (25-40); Mean Corpuscular HGB Conc 34.6 % (30-36); Mean Corpuscular Hemoglobin 30.2 PG (26-34); Mean Corpuscular Volume 87.1 fL (80-100); Monocytes Absolute Auto 500 /uL (0-900); Monocytes Percent Auto 7.3 % (3-14); Neutrophils Absolute Auto 3100 /uL (1500-7000); Neutrophils Percent Auto 48.6 % (50-75); Platelet Count 196 X10^3/uL (150-400); Red Blood Cell Count 4.45 X10^6/uL (4.0-5.2); Red Cell Distribution Width 12.9 % (11.6-14.8); White Blood Cell Count 6.4 X10^3/uL (4.5-11.0)
[2021-07-14 21:07] LABS: Alanine Aminotransferase 22 IU/L (<35); Albumin 4.4 g/dL (3.5-5.0); Albumin Globulin Ratio 1.3 (1.0-2.8); Alkaline Phosphatase 51 U/L (38-126); Aspartate Aminotransferase 27 IU/L (14-36); BUN Creatinine Ratio 11.1 (6-22); Bilirubin Total 0.3 mg/dL (0.2-1.3); Blood Urea Nitrogen 10 mg/dL (7-17); Calcium 8.9 mg/dL (8.4-10.2); Carbon Dioxide 28 mmol/L (22-32); Chloride 105 mmol/L (98-107); Estimated Glomerular Filt Rate > 60 mL/min (>60); Globulin 3.4 g/dL (1.7-4.1); Glucose 99 mg/dL (70-100); HEMOLYSIS < 15 (0-50); Potassium 3.9 mmol/L (3.4-5.1); Sodium 140 mmol/L (137-145); Total Protein 7.8 g/dL (6.3-8.2)
--- NOTE | 2021-07-14 21:25 | ED.RECABL ---
HPI - Recheck/Abnormal Lab/Rx General Chief Complaint: Recheck/Abnormal Lab/Rx Stated Complaint: Needs Blood Test for Kidney Function Time Seen by Provider: 07/14/21 20:26 Source: patient Mode of arrival: Family Vehicle Limitations: no limitations History of Present Illness HPI narrative: 36-year-old female. Has been diagnosed with lupus. Is followed by her primary doctor. Has episodes where she has nausea. She is currently having these episodes for the past 24 hours. She contacted her primary doctor who thought that she should come in for evaluation and have her kidney function checked. Related Data Previous Rx's Medication Instructions Recorded ofloxacin 0.3 % ear drops 10 drp OTIC (EAR) DAILY 7 Days #10 09/23/20 ml Allergies Allergy/AdvReac Type Severity Reaction Status Date / Time No Known Drug Allergies Allergy Verified 07/14/21 18:58 Review of Systems Constitutional Constitutional: Reports system reviewed and no additional complaints, except as documented Cardiovascular Cardiovascular: Reports system reviewed and no additional complaints, except as documented Respiratory Respiratory: Reports system reviewed and no additional complaints, except as documented Gastrointestinal Gastrointestinal: Denies change in bowel habits and Reports nausea Genitourinary Genitourinary: Reports system reviewed and no additional complaints, except as documented Patient History Medical History Anxiety (2015) Family history of thyroid disorder Panic attack (2015) Pelvic cramping Ruptured tympanic membrane Stress incontinence Surgical History Status post loop electrosurgical excision procedure (LEEP) of cervix (~2009) Status post myringotomy with insertion of tube Status post tubal ligation (12/26/13) Social History Smoking Status: Never smoker Smoking Status: Never smoker alcohol intake frequency: holidays/special occasions only Substance Use Type: does not use Exam Initial Vital Signs Initial Vital Signs: Vital Signs Temperature 98.2 F 07/14/21 18:54 Pulse Rate 66 07/14/21 18:54 Respiratory Rate 14 07/14/21 18:54 Blood Pressure 165/93 H 07/14/21 18:54 Pulse Oximetry 98 07/14/21 18:54 HENMT Head: normal to inspection Resp Effort & Inspection: normal respiratory effort Auscultation: clear to auscultation bilaterally Cardio Rate: regular rate Rhythm: regular rhythm GI Inspection: normal to inspection Neuro General: patient alert and patient awake Course Orders Ordered: ED Orders 07/14/21 20:46 CMP [Comprehensive Metabolic Panel] Stat Complete Blood Count AUTO DIFF Stat Vital Signs Vital signs: Vital Signs - 8 hr 07/14/21 18:54 Temperature 98.2 F Pulse Rate 66 Respiratory Rate 14 Blood Pressure 165/93 H Pulse Oximetry 98 MDM - Recheck/Abnormal Lab/Rx Lab Data Attestation: I reviewed the patient's lab results. Result diagrams: 07/14/21 20:46 07/14/21 20:46 Labs: Lab Results 07/14/21 07/14/21 Range/Units 20:46 20:46 WBC 6.4 (4.5-11.0) X10^3/uL RBC 4.45 (4.0-5.2) X10^6/uL Hgb 13.4 (12.0-16.0) g/dL Hct 38.8 (36-46) % MCV 87.1 (80-100) fL MCH 30.2 (26-34) PG MCHC 34.6 (30-36) % RDW 12.9 (11.6-14.8) % Plt Count 196 (150-400) X10^3/uL Neut % (Auto) 48.6 L (50-75) % Lymph % (Auto) 40.3 H (25-40) % [place] % (Auto) 7.3 (3-14) % Eos % (Auto) 3.2 (2-4) % Baso % (Auto) 0.6 (0-2) % Neut # (Auto) 3100 (1663-8050) /uL Lymph # (Auto) 2600 (3944-7627) /uL [place] # (Auto) 500 (0-900) /uL Eos # (Auto) 200 (0-450) /uL Baso # (Auto) 0 (0-100) /uL Sodium 140 (137-145) mmol/L Potassium 3.9 (3.4-5.1) mmol/L Chloride 105 (98-107) mmol/L Carbon Dioxide 28 (22-32) mmol/L BUN 10 (7-17) mg/dL Creatinine 0.90 (0.52-1.04) mg/dL Estimated GFR > 60 (>60) mL/min BUN/Creatinine Ratio 11.1 (6-22) Glucose 99 (70-100) mg/dL Calcium 8.9 (8.4-10.2) mg/dL Total Bilirubin 0.3 (0.2-1.3) mg/dL AST 27 (14-36) IU/L ALT 22 (<35) IU/L Alkaline Phosphatase 51 (38-126) U/L Total Protein 7.8 (6.3-8.2) g/dL Albumin 4.4 (3.5-5.0) g/dL Globulin 3.4 (1.7-4.1) g/dL Albumin/Globulin Ratio 1.3 (1.0-2.8) MDM Narrative Medical decision making narrative: Patient's kidney function is unremarkable. She was informed of the lab results. Patient denied that any further workup was needed in the emergency department. She was given return precautions. Discharge Plan Departure Patient Disposition: Home Clinical Impression: Lupus, Nausea Instructions: Nausea (Alternative Therapy), DI for Nausea -- Adult Activity Restrictions/Additional Instructions: Your kidney function today was unremarkable. Continue to follow all of the instructions given to you by your primary doctor. Return to the emergency department for new or worsening symptoms. Prescriptions: No Action ofloxacin 0.3 % drops 10 drp otic (ear) DAILY 7 Days Qty: 10 1RF Referrals: Rishabh Prado MD [Primary Care Provider] -
== END 2021-07-14 21:36 | disposition home or self-care (01) ==
PROVIDERS: Emergency Provider Emergency Medicine; Family Provider Obstetrics & Gynecology; PCP Family Medicine
DX: M32.9 Systemic lupus erythematosus, unspecified (principal); R11.0 Nausea
CPT/HCPCS: 36415; 80053; 85025; 99281; 99283

== ENCOUNTER 2022-10-21 19:37 | Emergency (ER) | payer OTHER, SELFPAY ==
[2022-10-21 19:41] VITALS: BP 141/76; PULSE 80; RESP 18; TEMP 37.3; O2SAT 99; BMI 24.3
[2022-10-21 20:00] LABS: Strep Grp A by PCR Rapid Negative (Negative)
--- NOTE | 2022-10-21 20:18 | ED.URI ---
HPI - URI/Sore Throat General Chief Complaint: Upper Respiratory Symptoms Stated Complaint: DIFF BREATHING, LIGHT HEADED Time Seen by Provider: 10/21/22 20:18 Source: patient Mode of arrival: Ambulatory History of Present Illness HPI Narrative: Patient 37-year-old female presenting today with mucus in throat. She reports that she is been feeling well yesterday and today she and her family ate at [place] [employer] on the way home she felt like she had excessive amounts of mucus in the back of her throat and that she could not breathe. It lasted for couple of hours and has since improved. She had no rash no tongue swelling or lip swelling. She is never had an anaphylactic reaction before but does have some food sensitivities. She denies fever or chills. She is not taken anything. She reports that she is having ovarian and uterus problem but not having any specific pain now just feels a little bit bloated. She is to see a specialist on November. Related Data Previous Rx's Medication Instructions Recorded ofloxacin 0.3 % ear drops 10 drp otic (ear) DAILY 7 days #10 09/23/20 mL Allergies Allergy/AdvReac Type Severity Reaction Status Date / Time No Known Drug Allergies Allergy Verified 07/14/21 18:58 Review of Systems Review of Systems ROS Unobtainable: All systems reviewed & are unremarkable except as noted in HPI and below Patient History Medical History Anxiety (2015) Family history of thyroid disorder Panic attack (2015) Pelvic cramping Ruptured tympanic membrane Stress incontinence Surgical History Status post loop electrosurgical excision procedure (LEEP) of cervix (~2009) Status post myringotomy with insertion of tube Status post tubal ligation (12/26/13) Social History Smoking Status: Never smoker Smoking Status: Never smoker alcohol intake frequency: holidays/special occasions only Substance Use Type: does not use Exam Initial Vital Signs Initial Vital Signs: Vital Signs Temperature 99.2 F 10/21/22 19:41 Pulse Rate 80 10/21/22 19:41 Respiratory Rate 18 10/21/22 19:41 Blood Pressure 141/76 H 10/21/22 19:41 Pulse Oximetry 99 09/03/23 19:41 Oxygen Delivery Method Room Air 10/21/22 19:41 GENERAL: Alert pleasant well-appearing 37-year-old and in no acute distress. HEENT: Head atraumatic,EOMI, pupils reactive, face symmetric, moist mucous membranes PHARYNX: No erythema, no tonsillar exudate, no cervical lymphadenopathy, no uvula swelling or deviation no stridor CARDIOVASCULAR: Regular rate and rhythm without murmurs, rubs or gallops. RESPIRATORY: Breath sounds equal bilaterally, no wheezes rales or rhonchi. EXTREMITIES: Normal range of motion, no clubbing or edema. Neurovascularly intact NEUROLOGICAL: Alert and oriented x4. SKIN: Warm, dry, no laceration, no petechiae, no rashes or lesions. Course Orders Ordered: ED Orders 10/21/22 19:45 Strep Grp A by PCR Rapid Stat Throat Culture Stat Vital Signs Vital signs: Vital Signs - 8 hr 10/21/22 19:41 10/21/22 21:20 Temperature 99.2 F Pulse Rate 80 65 Respiratory Rate 18 16 Blood Pressure 141/76 H 117/65 Pulse Oximetry 99 100 Oxygen Delivery Method Room Air Room Air MDM - URI/Sore Throat Lab Data Labs: Lab Results 10/21/22 Range/Units 19:45 Group A Strep (PCR) Negative (Negative) MDM Narrative Medical decision making narrative: Patient alert well-appearing 37-year-old female absolutely no sign of rash or allergic type reaction. She had sudden onset of excessive mucus which has now resolved. She has no wheezing or stridor. Throat is non erythematous without uvula swelling tonsillar exudate or enlargement. Airway is intact. Strep is negative backup culture pending. She reports that she has had some head congestion as well. We talked about possible viral and COVID however declines testing now. Discharge Plan Departure Patient Disposition: Home Clinical Impression: Upper respiratory infection Instructions: Common Cold, DI for Anaphylaxis Activity Restrictions/Additional Instructions: *You have been diagnosed with upper respiratory infection *What to do: At this time possible mild allergic reaction but unclear. Strep is negative today *Continue to take medications as directed Zyrtec as directed Benadryl 25-50 mg every 6 hours *Follow up with your primary care provider in 2-3 days or call [phone] *Return to ER if you should have increased difficulty breathing swelling rash throat swelling or any new, worsening or concerning symptoms Prescriptions: No Action ofloxacin 0.3 % drops 10 drp otic (ear) DAILY 7 Days Qty: 10 1RF Referrals: Elena Costa DNP, SYSTEMS SOFTWARE SPECIALIST [Primary Care Provider] - Stand Alone Forms: Patient Portal/API
[2022-10-21 21:20] VITALS: BP 117/65; PULSE 65; RESP 16; O2SAT 100
== END 2022-10-21 21:21 | disposition home or self-care (01) ==
PROVIDERS: Emergency Provider Emergency Medicine; Family Provider Obstetrics & Gynecology; PCP Nurse Practitioner Family
DX: J06.9 Acute upper respiratory infection, unspecified (principal)
CPT/HCPCS: 87070; 87651; 99281; 99282